=== PATIENT | female | born 1990 ===

== ENCOUNTER 2022-03-16 03:40 | Emergency (ER) | payer OTHER ==
[2022-03-16 03:45] VITALS: BP 143/79
== END 2022-03-16 19:00 | disposition left against medical advice (07) ==
LOC: ED 03:40
DX: S99.921A Unspecified injury of right foot, initial encounter (principal); Z53.21 Procedure and treatment not carried out due to patient leaving prior to being seen by health care provider; X58.XXXA Exposure to other specified factors, initial encounter; Y93.89 Activity, other specified; Y92.89 Other specified places as the place of occurrence of the external cause; Y99.8 Other external cause status